=== PATIENT | female | born 2000 | race Hispanic/Latino ===

== ENCOUNTER 2019-11-23 13:22 | Emergency (ER) | payer SELFPAY ==
--- NOTE | ~2019-11-23 | XR_ITS ---
EXAMINATION: XR chest 2V 11/23/2019 14:13 INDICATION: Chest pain and anxiety PROCEDURE: 2 view chest COMPARISON: No prior studies for comparison. FINDINGS: The lungs are clear. The cardiomediastinal silhouette is within normal limits. There are no pleural effusions. There is no pneumothorax suspected. IMPRESSION: 1: NO ACUTE CARDIOPULMONARY DISEASE. Reviewed, dictated and finalized at location A.
--- NOTE | 2019-11-23 13:26 | ED.GENADULT ---
HPI - General Adult General Chief complaint: Shortness of Breath/Dyspnea Stated complaint: ANXIETY Time Seen by Provider: 11/23/19 13:25 Source: patient and family Mode of arrival: ambulatory Limitations: no limitations History of Present Illness HPI narrative: Patient is a 19-year-old female who presents for evaluation of chest pain. Patient reports pain over the center of her chest that began approximately an hour ago. Patient was at work, she picks berries, when some coworkers started talking about the coronavirus, patient states that she became very nervous, felt palpitations and chest pain. Pain is currently moderate in nature. Has associated palpitations, nausea without vomiting. No shortness of breath. No fever, cough, cold symptoms. No sore throat. No recent sick contacts. No known exposures of coronavirus. Patient has no previous medical history. She does take control. She denies lower extremity calf pain or swelling. No family history of sudden cardiac . There is a positive family history of cardiac disease. Patient does not smoke. No recent travel. Related Data Home Medications Medication Instructions Recorded Confirmed norgestimate-ethinyl estradiol 1 tablet PO DAILY 11/23/19 [Sprintec (28)] Allergies Allergy/AdvReac Type Severity Reaction Status Date / Time No Known Allergies Allergy Verified 11/23/19 13:43 Review of Systems Review of Systems: Narrative: CONSTITUTIONAL: Denies fever, chills, or sweats. EYES: Denies visual changes, redness, or discharge. ENT: Denies rhinorrhea, congestion, sore throat, or otalgia. CARDIOVASCULAR: Reports chest pain and palpitations RESPIRATORY: Denies cough or dyspnea. GASTROINTESTINAL: Denies abdominal pain, reports nausea, denies vomiting GENITOURINARY: Denies dysuria or hematuria. SKIN: Denies rash or itching. MUSCULOSKELETAL: Denies back pain, joint pain, or myalgia. NEUROLOGIC: Denies headache, numbness, or weakness. PSYCHIATRIC: Reports anxiety and depression PMFSH Past Medical History Medical History (Updated 11/23/19 @ 16:14 by Bhavya Zepeda MD) No pertinent past medical history Surgical History Surgical History (Updated 11/23/19 @ 13:38 by Bhavya Zepeda MD) No pertinent past surgical history Social History Social History (Updated 11/23/19 @ 13:38 by Bhavya Zepeda MD) Smoking status: Never smoker Alcohol intake: never Substance use: never Living arrangements: with family Gender identity (if verbalized by the patient): Female Exam Narrative: Exam Narrative: GENERAL: Awake, alert, conversant HEAD: Normocephalic, atraumatic. EYES: PERRLA and EOMI. ENT: Nares clear, no rhinorrhea or epistaxis. Mucous membranes moist. NECK: Supple. CHEST: No respiratory distress, breathing even and non labored, chest wall tenderness to palpation, exactly reproduces pain HEART: Regular rate, sinus rhythm ABDOMEN:Non distended, non tender EXTREMITIES: Normal range of motion. No edema. SKIN: Warm, dry, no rash. NEURO:No focal deficits. Alert and oriented x3 Course Vital Signs Vital signs: Vital Signs Temperature 36.4 C 11/23/19 13:30 Pulse Rate 64 11/23/19 13:30 Respiratory Rate 20 11/23/19 13:30 Blood Pressure 113/55 L 11/23/19 13:30 Pulse Oximetry 100 11/23/19 13:30 Temperature 36.4 C 11/23/19 13:30 Pulse Rate 64 11/23/19 13:30 Respiratory Rate 20 11/23/19 13:30 Blood Pressure 113/55 L 11/23/19 13:30 Pulse Oximetry 100 11/23/19 13:30 Medical Decision Making MDM Narrative Medical decision making narrative: Patient's EKG and labs are without significant high risk changes. Cardiac risk factors reviewed. Patient is felt low risk for ACS and reasonable for further risk stratification testing as an outpatient. Pain was not sudden or maximal or onset without tearing or ripping quality. No other signs or symptoms to suggest aortic dissection. A low risk well's criteria is noted, PE
[2019-11-23 13:30] VITALS: BP 113/55; PULSE 64; RESP 20; TEMP 36.4; O2SAT 100
--- NOTE | 2019-11-23 13:37 | ECG_ITS ---
Measurements Intervals [place] Rate: 74 P: 35 PA: 138 QRS: 14 QRSD: 114 T: 7 QT: 405 QTc: 451 Interpretive Statements SINUS RHYTHM WITH SINUS ARRHYTHMIA INTRAVENTRICULAR CONDUCTION DELAY NONSPECIFIC T-WAVE ABNORMALITY- INFERIOR LEADS BASELINE ARTIFACT- I, II, III, AVR, AVL, AVF, V4-V6 BORDERLINE ECG Electronically Signed On 11-23-2019 13:39:40 CDT by Te Dong D.O.
[2019-11-23 13:53] LABS: Basophils Absolute Auto 0.1 K/mm3 (0.0-0.1); Basophils Percent Auto 0.7 % (0.2-1.2); Eosinophils Absolute Auto 0.1 K/mm3 (0-0.3); Eosinophils Percent Auto 1.1 % (0-4.4); Hematocrit 39.6 % (37.0-47.0); Immature Granulocyte Absolute 0.02 K/mm3 (0.00-0.031); Immature Granulocyte Percent A 0.3 % (0-0.5); Lymphocytes Absolute Auto 2.64 K/mm3 (0.9-3.2); Lymphocytes Percent Auto 34.7 % (18.3-44.2); Mean Corpuscular HGB Conc 35.4 g/dl (32-36); Mean Corpuscular Hemoglobin 31.6 pg (26-34); Mean Corpuscular Volume 89.4 fl (80-100); Mean Platelet Volume 11.3 fl (7.4-10.4); Monocytes Absolute Auto 0.5 K/mm3 (0.1-0.6); Neutrophils Absolute Auto 4.4 K/mm3 (1.3-6.7); Neutrophils Percent Auto 57.2 % (45.5-73.1); Platelet Count Result 253 k/mm3 (150-375); Red Blood Count 4.43 M/mm3 (4.2-5.4); Red Cell Distribution Width 11.9 % (11.5-14.5); White Blood Count 7.6 K/mm3 (4.5-10.0)
[2019-11-23] MEDS: ONDANSETRON INJ 4 MG/2 ML VIAL IV PUSH (13:56)
[2019-11-23] MEDS: ASPIRIN 81 MG CHEWABLE TABLET 324 MG PO (13:56)
[2019-11-23 14:04] LABS: Blood Urea Nitrogen 5 mg/dL (7-17); Calcium 9.2 mg/dL (8.4-10.2); Carbon Dioxide 23 mmol/L (22-30); Chloride 104 mmol/L (98-107); Estimated Glomerular Filt Rate > 60; Glucose 91 mg/dL (65-105); Potassium 3.3 mmol/L (3.4-5.0); Sodium 136 mmol/L (137-145)
[2019-11-23 14:08] LABS: Partial Thromboplastin Time 28.9 SECONDS (22.3-36.8); Prothrombin Time 12.5 Seconds (11.1-14.7)
[2019-11-23 14:16] LABS: Troponin I < 0.012 ng/mL (0.000-0.034)
[2019-11-23 14:21] LABS: D Dimer < 0.22 ug/mL (<0.48)
[2019-11-23 15:05] VITALS: BP 110/62; PULSE 66; RESP 20; O2SAT 100
[2019-11-23 16:01] LABS: Troponin I < 0.012 ng/mL (0.000-0.034)
[2019-11-23 16:36] VITALS: BP 108/67; PULSE 65; RESP 14; O2SAT 100
[2019-11-23 16:42] VITALS: PULSE 66
== END 2019-11-23 16:38 | disposition home or self-care (01) ==
PROVIDERS: Emergency Provider Emergency Medicine
DX: R07.89 Other chest pain (principal); I45.9 Conduction disorder, unspecified; R94.31 Abnormal electrocardiogram [ECG] [EKG]
CPT/HCPCS: 36415; 71046; 80048; 81025; 84484; 85025; 85380; 85610; 85730; 93005; 96374; 99284; A9270; J2405

== ENCOUNTER 2019-12-02 22:41 | Emergency (ER) | payer SELFPAY ==
[2019-12-02 22:49] VITALS: BP 117/83; PULSE 87; RESP 12; O2SAT 98
[2019-12-02 22:55] VITALS: PULSE 86
[2019-12-02 23:00] VITALS: BP 121/72; PULSE 82; RESP 15; O2SAT 97
[2019-12-03] VITALS: BP 102/80; PULSE 92; RESP 15; O2SAT 98
--- NOTE | 2019-12-03 00:26 | PC.NURSE ---
Pt to be intubated by EDP BICK. Collazo RN at bedside along w/ respiratory. Etomidate administered 20mg IVP VORB 0029 Succ administered 100mg IVP VORB 0029 PT intubated W/ size 8 et tube 25 at the lip.
--- NOTE | 2019-12-03 01:51 | ED.SOB ---
HPI - SOB/Dyspnea General Chief Complaint: Shortness of Breath/Dyspnea Stated Complaint: hurts to breathe Time Seen by Provider: 12/03/19 01:40 History of Present Illness HPI Narrative: Patient arrives from home with coughing and shortness of breath. Several of her family members are positive for COVID. She was tested yesterday and will get her results today. She has a slight cough she said it hurts when she coughs. She has had no fever but some sweats. She has no medical problem. Her only medication is her control. MD elicited complaint: shortness of breath, cough and chest pain Related Data Home Medications Medication Instructions Recorded Confirmed norgestimate-ethinyl estradiol 1 tablet PO DAILY 11/23/19 [Sprintec (28)] Allergies Allergy/AdvReac Type Severity Reaction Status Date / Time No Known Allergies Allergy Verified 11/23/19 13:43 Review of Systems Review of Systems: Narrative: CONSTITUTIONAL: Denies fever, chills, or sweats. EYES: Denies visual changes, redness, or discharge. ENT: Denies rhinorrhea, congestion, sore throat, or otalgia. CARDIOVASCULAR: Denies chest pain, palpitations, or edema. RESPIRATORY: She has cough and dyspnea. GASTROINTESTINAL: Denies abdominal pain, nausea, vomiting, or diarrhea. GENITOURINARY: Denies dysuria or hematuria. SKIN: Denies rash or itching. MUSCULOSKELETAL: Denies back pain, joint pain, or myalgia. NEUROLOGIC: Denies headache, numbness, or weakness. PSYCHIATRIC: Denies anxiety or depression. All systems reviewed & are unremarkable except as noted in HPI and below PMFSH Past Medical History Medical History (Updated 12/03/19 @ 01:53 by Pinky Baker MD) Bronchitis Family planning No pertinent past medical history Surgical History Surgical History No pertinent past surgical history Social History Social History Smoking status: Never smoker Alcohol intake: never Substance use: never Gender identity (if verbalized by the patient): Female Exam Narrative: Exam Narrative: GENERAL: Well-appearing, well-nourished, and in no acute distress. Occasional dry cough. HEAD: Normocephalic, atraumatic. EYES: PERRLA and EOMI. ENT: Nares clear, no rhinorrhea or epistaxis. Mucous membranes moist. NECK: Supple. CHEST: Clear to auscultation. No respiratory distress. HEART: Regular rate and rhythm. No murmur heard. Normal peripheral pulses. ABDOMEN: Soft, nontender, nondistended, normal active bowel sounds. EXTREMITIES: Normal range of motion. No edema. SKIN: Warm, dry, no rash. NEURO: No focal deficits. Alert and oriented x3. PSYCH: Normal mood and affect. Course Vital Signs Vital signs: Vital Signs Pulse Rate 87 12/02/19 22:49 Respiratory Rate 12 12/02/19 22:49 Blood Pressure 117/83 12/02/19 22:49 Pulse Oximetry 98 12/02/19 22:49 Pulse Rate 86 12/02/19 22:55 Respiratory Rate 12 12/02/19 22:49 Blood Pressure 117/83 12/02/19 22:49 Pulse Oximetry 98 12/02/19 22:49 MDM - SOB/Dyspnea Differential Diagnosis Differential diagnosis: Likely other (Bronchitis, COVID) Medical Records Attestation: I reviewed the patient's medical records. Discharge Plan Discharge Clinical Impression: Bronchitis Patient Disposition: Home, Self-Care Condition: Stable Instructions: Acute Bronchitis (ED) Additional Instructions: Self quarantine at home for 2 weeks. Prescriptions: New Robitussin Cough-Chest Gee DM 5-100 mg/5 mL liquid 10 ml PO Q4-8H PRN (Reason: cough) Qty: 118 RF: 0 No Action norgestimate-ethinyl estradiol [Sprintec (28)] 0.25-35 mg-mcg tablet 1 tablet PO DAILY RF: 0 Follow-up/Referrals: Nell Gutiérrez MD [Physician] - (Call for new patient appointment after 2-week quarantine) PHYSICIAN,[employer] RECEPTIONIST [Primary Care Provider] - Time of Disposition: 01:51
[2019-12-03 02:18] VITALS: BP 128/78; PULSE 87; RESP 19; O2SAT 97
== END 2019-12-03 02:20 | disposition home or self-care (01) ==
PROVIDERS: Emergency Provider Emergency Medicine
DX: J40 Bronchitis, not specified as acute or chronic (principal)
CPT/HCPCS: 99283

== ENCOUNTER 2022-01-12 20:13 | Emergency (ER) | payer MEDICAID, SELFPAY ==
--- NOTE | ~2022-01-12 | US_ITS ---
EXAMINATION: US OB <= 14 weeks fetus DATE: 01/13/2022 00:00 INDICATION: Cramping and bleeding during first trimester of TECHNIQUE: Real-time pelvic ultrasound utilizing both a transvaginal and transabdominal probe was pe rformed. The interpreting radiologist was not present for the study. COMPARISON: None. FINDINGS: The uterus measures 10.6 x 8.2 x 7.5 cm. There is an intrauterine gestational sac. A yolk sac and fe cheryl pole are identified. The crown rump length measures 3.8 cm, which correlates with an estimated ge stational age of 10 weeks and 5 days. heart motion is identified measuring 163 beats per minute (bpm) by M-mode Doppler. 3.2 x 1.3 x 2.8 cm anechoic subchorionic hematoma. The ovaries are not visu alized. There is no free fluid in the pelvis. IMPRESSION: 1. Single living fetus with heart rate of 163 bpm. 2. Small subchorionic hematoma. 3. Gestational age by ultrasound of 10 weeks 5 day(s) +/- 7 day(s) with ultrasound estimated date of delivery ([facility]) of 08/05/2022. Reviewed, dictated and finalized at location A. IMPRESSION: 1. Single living fetus with heart rate of 163 bpm. 2. Small subchorionic hematoma. 3. Gestational age by ultrasound of 10 weeks 5 day(s) +/- 7 day(s) with ultraso und estimated date of delivery ([facility]) of 08/05/2022.
[2022-01-12 20:29] VITALS: BP 109/91; PULSE 73; RESP 16; TEMP 37.2; O2SAT 100
[2022-01-12 21:12] LABS: Basophils Percent Auto 0.3 % (0.2-1.2); Eosinophils Absolute Auto 0.2 K/mm3 (0-0.3); Eosinophils Percent Auto 1.8 % (0-4.4); Hematocrit 36.5 % (37.0-47.0); Hemoglobin 12.4 g/dL (12.0-15.0); Immature Granulocyte Absolute 0.02 K/mm3 (0.00-0.031); Immature Granulocyte Percent A 0.2 % (0-0.5); Lymphocytes Absolute Auto 3.19 K/mm3 (0.9-3.2); Lymphocytes Percent Auto 35.1 % (18.3-44.2); Mean Corpuscular Hemoglobin 31.6 pg (26-34); Mean Corpuscular Volume 92.9 fl (80-100); Mean Platelet Volume 11.3 fl (7.4-10.4); Monocytes Absolute Auto 0.7 K/mm3 (0.1-0.6); Monocytes Percent Auto 7.3 % (2.6-8.5); Neutrophils Percent Auto 55.3 % (45.5-73.1); Platelet Count Result 221 k/mm3 (150-375); Red Blood Count 3.93 M/mm3 (4.2-5.4); Red Cell Distribution Width 12.6 % (11.5-14.5); White Blood Count 9.1 K/mm3 (4.5-10.0)
[2022-01-12 21:14] LABS: Appearance Urine Clear (Clear); Bilirubin Urine Negative (Negative); Blood Urine 1+ (Negative); Glucose Urine UA Negative (Negative); Ketones Urine Negative (Negative); Leukocyte Esterase Ur Negative LEU/UL (Negative); Nitrate Urine Negative (Negative); Protein Urine Negative (Negative); Specific Grav Ur <= 1.005 (1.001-1.035); Urobilinogen Urine 0.2 mg/dL (<2.0)
[2022-01-12 21:15] LABS: Add Urine Microscopic? YES; Color Urine Light Yellow (Yellow)
[2022-01-12 21:22] LABS: Bacteria Urine 2+ /hpf; RBC Urine 0-2 /hpf (0-2); Squamous Epithelial Cell Urine Few /hpf (Few); WBC Urine 0-3 /hpf
[2022-01-12 21:27] LABS: Alanine Aminotransferase 17 U/L (6-35); Albumin Level 3.8 g/dL (3.5-5.1); Alkaline Phosphatase 65 U/L (38-126); Anion Gap 8 mmol/L (8-16); Aspartate Amino Transferase 20 U/L (14-36); Bilirubin,Total 0.2 mg/dL (0.2-1.3); Blood Urea Nitrogen 5 mg/dL (7-17); Calcium 8.5 mg/dL (8.4-10.2); Carbon Dioxide 19 mmol/L (22-30); Chloride 107 mmol/L (98-107); Estimated CRCL calculation 160 ml/min; Estimated Glomerular Filt Rate > 60; Glucose 114 mg/dL (65-110); Lipase 131 U/L (23-300); Potassium 3.5 mmol/L (3.4-5.0); Sodium 134 mmol/L (137-145)
[2022-01-12 21:57] VITALS: BP 98/49; PULSE 57; RESP 16; O2SAT 100
[2022-01-12 22:24] LABS: Pregnancy On Board Control Positive; Urine Pregnancy Test Positive
--- NOTE | 2022-01-12 22:34 | ED.ABDPAIN ---
HPI - Abdominal Pain General Chief Complaint: Abdominal Pain Stated Complaint: abd pain, 11 weeks Time Seen by Provider: 01/12/22 22:17 History of Present Illness HPI narrative: Patient is a 21-year-old G1, P0 female who is currently about 11 weeks here for evaluation of lower abdominal pain for the past day. States that the pain is crampy and intermittent in nature, it is located across her bilateral lower abdomen. She is currently 11 weeks , follows with an OB doctor at [place] but is unsure of the name, and states she has not had formal US. Also reports dark brown vaginal spotting. She has not attempted any medication for her pain. Denies syncope, lightheadedness, fevers, chills. Related Data Home Medications Medication Instructions Recorded Confirmed norgestimate 0.25 mg-ethinyl 1 tablet PO DAILY 11/23/19 estradiol 35 mcg tablet (Sprintec (28)) Allergies Allergy/AdvReac Type Severity Reaction Status Date / Time No Known Allergies Allergy Verified 01/12/22 21:58 Review of Systems Review of Systems: Gen.: Denies fevers or chills Eyes: Denies eye pain or visual change ENT: Denies congestion Respiratory: Denies shortness of breath or cough CV: Denies chest pain or palpitations GI: Reports lower abdominal pain .denies nausea, emesis or diarrhea reports dark brown vaginal bleeding. Denies burning, urgency, frequency or hematuria Musculoskeletal: Denies back pain or muscle pain Neuro: Denies numbness, tingling, weakness or focal weakness Skin: Denies rash Except as documented, all other systems reviewed and negative [facility] Past Medical History Medical History (Updated 01/13/22 @ 01:14 by Lorrie Love PA-C) Bronchitis Family planning No pertinent past medical history Surgical History Surgical History No pertinent past surgical history Social History Social History Smoking status: Never smoker Alcohol intake: never Substance use: never Gender identity (if verbalized by the patient): Female Exam Narrative: APPEARANCE: Well appearing, no pain in distress, well-nourished. Head: Normocephalic and atraumatic. EYES: PERRLA/EOMI, conjunctivae clear NOSE: No nasal drainage EARS: External ear normal in appearance THROAT: Oropharynx is clear. Mucous membranes are moist. NECK: Supple. No adenopathy, no masses. RESPIRATORY: Airway patent, respirations nonlabored. Clear to auscultation bilaterally, no rales, rhonchi, wheezing. CARDIOVASCULAR: Regular rate and rhythm without murmurs, rubs, or gallops. ABDOMINAL: Gravid uterus. Nontender to palpation. : Exam performed with aging box hand Caridad. Cervical os is closed, no blood noted in vaginal vault. MUSCULOSKELETAL: Extremities are warm and well-perfused. Moves all extremities well. No edema. NEURO: Normal speech. No focal neurologic deficits. SKIN: Skin is warm and dry. No rashes. PSYCHIATRIC: Normal affect/mood. Course Course Emergency Course: Unable to detect heart tones on doppler although patient is only 11 weeks Vital Signs Vital signs: Vital Signs Temperature 99.0 F 01/12/22 20:29 Pulse Rate 73 01/12/22 20:29 Respiratory Rate 16 01/12/22 20:29 Blood Pressure 109/91 H 01/12/22 20:29 Pulse Oximetry 100 01/12/22 20:29 Oxygen Delivery Room Air 01/12/22 20:29 Temperature 99.0 F 01/12/22 20:29 Pulse Rate 66 01/13/22 01:23 Respiratory Rate 18 01/13/22 01:23 Blood Pressure 102/53 L 01/13/22 01:23 Pulse Oximetry 100 01/13/22 01:23 Oxygen Delivery Room Air 01/12/22 20:29 MDM - Abdominal Pain MDM Narrative Medical decision making narrative: 21-year-old female who is currently 11 weeks here for evaluation of vaginal bleeding and lower abdominal cramping for the past day. Her vital signs are normal for a woman, her abdomen is gravid and
[2022-01-12 23:29] VITALS: BP 111/53
[2022-01-12 23:37] VITALS: PULSE 57; RESP 16; O2SAT 99
[2022-01-13 01:23] VITALS: BP 102/53; PULSE 66; RESP 18; O2SAT 100
== END 2022-01-13 01:24 | disposition home or self-care (01) ==
PROVIDERS: Physician Assistant; Emergency Provider Emergency Medicine
DX: O46.8X1 Other antepartum hemorrhage, first trimester (principal); Z3A.10 10 weeks gestation of pregnancy
CPT/HCPCS: 36415; 76801; 80053; 81001; 81025; 83690; 84702; 85025; 85461; 99284